=== PATIENT | female | born 1940 | race Caucasian/White ===

== ENCOUNTER → 2017-03-13 12:32 | Outpatient (CLI) | payer MEDICARE, OTHER ==
[2017-03-13 14:43] LABS: CALC OSMOLALITY 279 mosm/kg (275-300); CARBON DIOXIDE 22.9 mmol/L (21.0-32.0); CHLORIDE - SERUM 100 mmol/L (98-107); CREATININE - SERUM 0.7 mg/dL (0.6-1.3); GLUCOSE 117 mg/dL (74-106); POTASSIUM - SERUM 4.5 mmol/L (3.5-5.1); SODIUM 138 mmol/L (136-145); UREA NITROGEN 22 mg/dL (7-18); eGFR NON AFRICAN AMERICAN 86 mL/min (90-120)
[2017-03-13 14:47] LABS: APPEARANCE CLOUDY (CLEAR); BILIRUBIN NEGATIVE (NEGATIVE); COLOR YELLOW (YELLOW); GLUCOSE NEGATIVE (NEGATIVE); KETONE NEGATIVE (NEGATIVE); NITRITE POSITIVE (NEGATIVE); PROTEIN TRACE mg/dL (NEGATIVE); UROBILINOGEN NORMAL (NORMAL)
[2017-03-13 14:49] LABS: BACTERIA MODERATE /hpf (NONE SEEN)
[2017-03-13 14:50] LABS: TRIPLE PHOSPHATE CRYSTALS RARE /hpf (NONE SEEN)
[2017-03-17 14:13] LABS: EHRLICHIA CHAFF IGG Negative (Neg:<1:64); EHRLICHIA CHAFF IGM Negative (Neg:<1:20); HGE IGG TITER Negative (Neg:<1:64); HGE IGM TITER Negative (Neg:<1:20)
[2017-03-17 15:15] LABS: RMSF IGM 0.45 index (0.00-0.89)
[2017-03-21 10:20] LABS: F. TULARENSIS - IGG See below: (()); F. TULARENSIS - IGM Negative (())
== END | disposition home or self-care (01) ==
LOC: D.LABREF 12:32
PROVIDERS: Student in an Organized Health Care Education/Training Program
DX: A93.8 Other specified arthropod-borne viral fevers (principal); R60.0 Localized edema

== ENCOUNTER → 2018-07-14 09:14 | Outpatient (CLI) | payer MEDICARE, OTHER ==
--- NOTE | 2018-07-17 16:42 | ST ---
PATIENT:NICOLAS AWAD MEDICAL RECORD: [id number] SEX: F LOCATION:[facility] ORDER #: ADMISSION DATE: 07/14/18 AGE OF PATIENT: 78 REFERRING PHYSICIAN: INTERPRETING PHYSICIAN: CHAKA CLEMENT MD DATE OF SERVICE: 07/14/2018 PROCEDURE: Nuclear stress test. INDICATIONS: Angina, abnormal ECG, hypertension, hyperlipidemia. She was exercised on standard Lexiscan protocol with 27 mCi of sestamibi injected at peak stress, 9 mCi used previously for rest images. FINDINGS: Gated SPECT reveals preserved ejection fraction at 74% with good wall motion and thickening and brightening throughout all segments. SPECT imaging Cardiolite was used as myocardial fusion agent. There is homogeneous uptake throughout all segments at rest and stress with no evidence of inducible ischemia or previous infarction. OVERALL IMPRESSION: 1. This is a normal nuclear stress test with no evidence of inducible ischemia or previous infarction. 2. Gated SPECT reveals a preserved ejection fraction at 74%. In this patient with ongoing symptomatology, the current scan does not suggest the presence of hemodynamically significant coronary artery disease. Evaluate noncardiac etiology of chest pain. TRANSINT:[id number] Voice Confirmation ID: [id number] DOCUMENT ID: [id number] CHAKA CLEMENT MD at 1642 CC: DWAYNE CHERRY [id number] DICTATION DATE: 07/15/18 1537 PASTER HAT LINING: 07/16/18 0418 DEP CLI 07/14/18 [id number] [place] [address]
== END | disposition home or self-care (01) ==
LOC: D.HCCARDIO 09:14
PROVIDERS: ATTEND Internal Medicine Interventional Cardiology
DX: R07.9 Chest pain, unspecified (principal)

== ENCOUNTER 2018-12-11 12:44 | Inpatient (IN) | payer MEDICARE, OTHER ==
[~2018-12-11] VITALS: Ht 149.9 cm; Wt 67.6 kg
--- NOTE | ~2018-12-11 | HEMODYNAMI ---
PATIENT:NICOLAS AWAD MEDICAL RECORD: [id number] : 36 LOCATION:[facility] ADMISSION DATE: 12/11/18 Generatedon:12/11/201814:45 Patient name: NICOLAS AWAD Patient #: [id number] SSN: [id number] : 1940 Date of study: 12/11/2018 Page: Of Hemodynamic Procedure Report Patient Data Patient Demographics Procedure consent was obtained First Name: NICOLAS Gender: Female Last Name: DELMI : 1940 Patient #: [id number] Age: 78 year(s) Race: Unknown SSN: [id number] Additional ID: [id number] Contact details [address]: [address] [place] [address] State: [place] City: [place] Zip code: [address] Past Medical History Allergies: No known allergies Admission Admission Data Admission Date: 12/11/2018 Admission Time: 12:44 Admit Source: Emergency department Height (in.): 59 BSA: 1.63 (m2) Height (cm.): 149.86 BMI: 30.36 (kg/m2) Weight (lbs.): 150.31 Weight (kg.): 68.18 Lab Results Lab Result Date: 12/11/2018 Lab Result Time: 0:00 Biochemistry Name Units Result Min Max BUN mg/dl 20 --(----)*- 7 18 Creatinine mg/dl 0.8 --(-*--)-- 0.6 1.3 eGFR ml/min 73.70085 *-(----)-- 90 120 NONAFRICAN CBC Name Units Result Min Max Hematocrit % 40 -*(----)-- 42 54 Hemoglobin g/dl 13.4 -*(----)-- 13.5 17.5 Procedure Procedure Types Cath Procedure Diagnostic Procedure [facility] w/Coronaries Sedation Charges Moderate Sedation up to 15 minutes PCI Procedure PTCA PTCA Initial Procedure Description Procedure Date Procedure Date: 12/11/2018 Procedure Start Time: 14:13 Procedure End Time: 14:37 Procedure Staff Name Function Neftaly Dang MD Performing Physician Chio Jules RT Monitor Esa España RN Nurse Lashay Aragon RT Scrub Quinton Chang RT Territory Sales Executive Sumanth Loomis MD Performing Physician Procedure Data Cath Procedure Fluoroscopy Diagnostic fluoroscopy Total fluoroscopy Time: 3.2 time: 3.2 min min Diagnostic fluoroscopy Total fluoroscopy dose: 398 dose: 398 mGy mGy Contrast Material Contrast Material Type Amount (ml) Isovue 370 102 Entry Location Entry Primary Successful Side Size Upsize Upsize Entry Closure Succes sful Closure Location (Fr) 1 (Fr) 2 (Fr) Remarks Device Remarks Femoral Right 6 Fr Exoseal artery Short Estimated blood loss: 10 ml Diagnostic catheters Device Type Used For End Catheter Placement MULTIPACK JL 4.0 5Fr Procedure catheter MULTIPACK 3DRC 5Fr Procedure catheter MULTIPACK Pigtail 5 Fr Procedure catheter Procedure Complications No complications Procedure Medications Medication Administration Route Dosage Oxygen etCO2 Nasal cannula 2 l/min Lidocaine 2% added to field 20 Heparin Flush Bag added to field 2 bags (1000units/500ml NS) 0.9% NaCl I.V. 100 ml/hr Versed I.V. 1 mg Fentanyl I.V. 50 mcg Heparin Bolus I.V. 3000 units Lopressor I.V. 5 mg Integrilin (Bolus I.V. 6.2 ml 2mg/ml) Hemodynamics Rest BSA: 1.63 (m2) HGB: 13.4 (g/dl) O2 Consumption: Estimated: 147.82 (ml/min) O2 Co nsumption indexed: Estimated:90.69 (ml/min/m) Heart Rate: 72 (bpm) Pressure Samples Time Site Value (mmHg) Purpose Heart Use Rate(bpm) 14:18 LV 174/31,33 Snapshot 81 Gradients Valve Time Site Site Mean SEP/DFP Peak To Heart Use 1 2 (mmHg) (sec/min) Peak Rate (mmHg) (bpm) Aortic 14:19 LV AO 78 Snapshots Pre Cath Intra NCS Post Cath Vital Signs Time Heart Resp SPO2 etCO2 NIBP (mmHg) Rhythm Pain Sedation Rate (ipm) (%) (mmHg) Status Level (bpm) 14:10:05 70 19 99 26.3 170/77(124) NSR 0 (11) 10(A) , No pain 14:14:34 74 17 93 11.3 149/63(127) NSR 0 (11) 9(A) , No pain 14:18:56 77 15 95 8.2 157/72(124) NSR 0 (11) 9(A) , No pain 14:23:20 82 11 98 7.5 160/75(108) NSR 0 (11) 9(A) , No pain 14:27:40 67 18 95 8.2 151/80(133) NSR 0 (11) 9(A) , No pain 14:33:04 64 20 99 9.8 174/88(140) NSR 0 (11) 10(A) , No pain Medications Time Medication Route Dose Verified Delivered Reason Notes Effectiveness by by 14:09:09 Oxygen etCO2 2 Neftaly Buffie used for Nasal l/min Alton España RN procedure cannula 14:09:15 Lidocaine 2% added 20ml Neftaly Neftaly for local to vial Alton Dang MD anesthetic field 14:09:22 Heparin Flush added 2 Neftaly Neftaly used for Bag to bags Alton Dang MD procedure (1000units/500ml field NS) 14:09:30 0.9% NaCl I.V. 100 Neftaly Buffie Per physician ml/hr Alton España RN 14:09:42 Versed I.V. 1 mg Neftaly Buffie for sedation Alton España RN 14:09:48 Fentanyl I.V. 50 Neftaly Buffie for sedation mcg Alton España RN 14:15:52 Heparin Bolus I.V. 3000 Neftaly Buffie for verif ied units Alton España RN anticoagulation with dr le 14:25:11 Lopressor I.V. 5 mg Neftaly Buffie Per physician Alton España RN 14:27:27 Integrilin I.V. 6.2 Neftaly Buffie for (Bolus 2mg/ml) ml Alton España RN antiplatelet therapy Procedure Log Time Note 13:30:43 Esa España RN sent for patient. Start room use. 13:46:56 Time tracking: Regular hours (M-F 7:00 - 5:00) 13:47:01 Plan of Care:Hemodynamics will remain stable., Cardiac rhythm will remain stable., Comfort level will be maintained., Respiratory function will remain adequate., Patient/ family verbilizes understanding of procedure., Procedure tolerated without complication., Recovers from procedure without complications.. 13:48:30 Informed consent obtained and on chart 13:48:38 Admit Source: Emergency department 13:48:42 ACC Patient presents with Non-STEMI CCS Anginal Class 4--Inability to carry out any physical activity w/o angina. Angina may occur at rest. 13:50:23 Patient Height : 59 inches 13:50:29 Patient Weight : 150.31 lbs 13:57:20 Patient received from ED to CCL 2 Alert and oriented. Tansferred to table in Supine position. 13:57:23 Warm blankets applied, and mike hugger turned on for patient comfort. 13:57:23 Correct patient and procedure confirmed by team. 13:57:25 ECG and BP/O2 sat monitors applied to patient. 13:57:26 Full Disclosure recording started 13:57:31 H&P Date Dictated: 12/11/2018 ER History on chart.. 13:57:32 Pre-procedure instructions explained to patient. 13:57:32 Pre-op teaching completed and patient verbalized understanding. 13:57:35 Family in patients room. 13:57:36 Patient NPO since Midnight. 13:57:45 Patient allergic to No known allergies 13:58:08 Is patient on blood thinner?Yes preloaded on plavix 13:58:09 Patient diabetic? Yes. 13:58:32 If diabetic: On Metformin? No 13:59:02 Patient not . Patient is over age 55. 13:59:05 Previous problem with sedation/anesthesia? No ? 13:59:06 Snore? Yes 13:59:07 Sleep apnea? No 13:59:08 Deviated septum? No 13:59:09 Opens mouth fully? Yes 13:59:10 Sticks out tongue? Yes 13:59:12 Airway obstruction? No ? 13:59:42 Dentures? Yes IN TIGHT 13:59:49 Pre procedure: right dorsailis pedis pulse 1+ Palpable, but thready & weak; easily obliterated 14:00:27 IV patent on arrival in left wrist with 0.9% NaCl at KVO. 14:00:56 Lab Result : BUN 20 mg/dl 14:00:56 Lab Result : Creatinine 0.8 mg/dl 14:00:56 Lab Result : eGFR NONAFRICAN 73.45168 ml/min 14:00:56 Lab Result : Hemoglobin 13.4 g/dl 14:00:56 Lab Result : Hematocrit 40 % 14:00:59 Lab results completed and on chart. 14:01:03 Right groin area was prepped with chlora-prep and draped in sterile fashion 14:01:03 Alarms reviewed by R. N. 14:01:04 Sharps counted by scrub and verified by R.N. 14:02:22 Use device set Femoral Dx 14:02:23 ACIST Syringe (84674) opened to sterile field. 14:02:23 Bag Decanter (2002S) opened to sterile field. 14:02:24 ACIST Hand Control (40364) opened to sterile field. 14:02:25 ACIST Manifold (40863) opened to sterile field. 14:02:25 Tegaderm 4 x 4 (1626W) opened to sterile field. 14:02:26 Medline Cath Pack ([id number]) opened to sterile field. 14:02:27 DIAGNOSTIC Multipack 5Fr catheter set (MS4461) opened to sterile field. 14:02:32 EMERALD Guide Wire (994-630) opened to sterile field. 14:08:52 Vital chart was started 14:09:09 Oxygen 2 l/min etCO2 Nasal cannula was administered by Esa España RN; used for procedure; Verbal order read back and verified. 14:09:15 Lidocaine 2% 20ml vial added to field was administered by Neftaly Dang MD; for local anesthetic; Verbal order read back and verified. 14:09:22 Heparin Flush Bag (1000units/500ml NS) 2 bags added to field was administered by Neftaly Dang MD; used for procedure; Verbal order read back and verified. 14:09:25 Physician arrived 14:09:30 0.9% NaCl 100 ml/hr I.V. was administered by Esa España RN; Per physician; Verbal order read back and verified. 14:09:31 --------ALL STOP TIME OUT------ 14:09:34 Final Timeout: patient, procedure, and site verified with staff and physician. All members of the team are in agreement. 14:09:37 Right groin site verified by team. 14:09:42 Versed 1 mg I.V. was administered by Esa España RN; for sedation; Verbal order read back and verified. 14::42 Fire Safety Assessment: A--An alcohol-based skin anteseptic being used preoperatively., C--Open oxygen or nitrous oxide is being used., D--An ESU, laser, or fiber-optic light is being used. 14::48 Fentanyl 50 mcg I.V. was administered by Esa España RN; for sedation; Verbal order read back and verified. 14::48 Physical assessment completed. ASA score P 2 - A patient with mild systemic disease as per Neftaly Dang MD. 14:10:01 2) 60-89 Mildly reduced kidney function, and other findings (as for stage 1) point to kidney disease. 14:13:12 Maximum allowable contrast dose (3.7 X eGFR X 0.75)202 ml. 14:13:17 Sedation plan: IV Moderate Sedation Medication:Versed, Fentanyl 14:13:30 SHEATH 6FR Eden (JCC776) opened to sterile field. 14:13:36 Procedure started. 14:13:44 Local anesthetic to right femoral artery with Lidocaine 2% by Neftaly Dang MD.INITIAL ACCESS ONLY 14:13:52 A 6 Fr Short sheath was inserted into the Right Femoral artery 14:13:56 j wire advanced. 14:14:22 A MULTIPACK JL 4.0 5Fr catheter was advanced over the wire and used for Procedure. 14:14:52 Baseline sample Acquired. 14:14:55 Baseline sample Acquired. 14:15:06 Rhythm: sinus rhythm , w/ ST elevation 14:15:17 LCA angiography performed. 14:15:52 Heparin Bolus 3000 units I.V. was administered by Esa España RN; for anticoagulation; verified with dr le Verbal order read back and verified. 14:18:09 Catheter removed. 14:18:21 A MULTIPACK 3DRC 5Fr catheter was advanced over the wire and used for Procedure. 14:18:25 RCA angiography performed. 14:18:30 Catheter removed. 14:18:37 A MULTIPACK Pigtail 5 Fr catheter was advanced over the wire and used for Procedure. 14:19:02 EF : 55 % 14:19:03 LV hemodynamics recorded. 14:19:08 Catheter removed. 14:19:20 GUIDE 6FR XBLAD 3.5 catheter ([id number]) opened to sterile field. 14:20:44 INFLATOR Merit BasixCompak (AU3604) opened to sterile field. 14:20:45 WHISPER 300cm guide wire ([id number]) opened to sterile field. 14:22:18 Pre PCI Site: [place] mLAD has 100% stenosis. 14::25 6 Fr XBLAD3.5 guide catheter was inserted over the wire 14:: WHISPER wire advanced. 14::37 Wire advanced across lesion. 14:25:11 Lopressor 5 mg I.V. was administered by Esa España RN; Per physician; Verbal order read back and verified. 14::37 Inflate balloon Inflation number: 1 A Mozec Rx 2.5 x 14 balloon was prepped and advanced across the Mid LAD 100, then inflated to 8 WES for 0:19 (min:sec) . 14::22 Inflation number: 2 The Mozec Rx 2.5 x 14 balloon was reinflated across the Mid LAD , to 8 WES for 0:17 (min:sec) . 14:27:21 Inflation number: 3 The Mozec Rx 2.5 x 14 balloon was reinflated across the Mid LAD , to 6 WES for 0:13 (min:sec) . 14:27:27 Integrilin (Bolus 2mg/ml) 6.2 ml I.V. was administered by Esa España RN; for antiplatelet therapy; Verbal order read back and verified. 14:27:36 Inflation number: 4 The Mozec Rx 2.5 x 14 balloon was reinflated across the Mid LAD , to 6 WES for 0:08 (min:sec) . 14:30:54 ACT drawn and resulted at 275 seconds. (normal therapeutic range 180-240 seconds). 14:30:57 Wire removed. 14:30:58 Guide catheter removed. 14:32:21 Sheath removed intact; hemostasis achieved with Exoseal to the Right Femoral artery. 14:32:30 EXOSEAL 6Fr (EX600) opened to sterile field. 14:32:59 Procedure ended.(Physican Out) 14:33:09 Fluoroscopy time 03.20 minutes. 14:33:14 Flurop Dose total: 398 14:33:14 Fluoroscopy dose: 398 mGy 14:33:18 Dose Area Product 43530 mGy/cm. 14:33:24 Contrast amount:Isovue 370 102ml. 14:33:26 Maximum allowable dose exceeded? No. 14:33:27 Sharps counted by scrub and verified by R.N. 14:33:30 Insertion/operative site no bleeding no hematoma. 14:33:33 Post-op/insertion site Right Femoral artery dressed using a 4 x 4 and Tegaderm. 14:33:35 Post Procedure Pulses reassessed and unchanged 14:33:41 Post procedure: right dorsailis pedis pulse 2+ Normal; easily identifiable; not easily obliterated. 14:33:49 Post procedure rhythm: sinus rhythm , w/ ST elevation 14:33:52 Estimated blood loss: 10 ml 14:33:54 Post procedure instruction explained to patient.Patient verbalizes understanding. 14:34:58 Procedure type changed to Cath procedure, Diagnostic procedure, LHC, LHC w/Coronaries, Sedation Charges, Moderate Sedation up to 15 minutes, PCI procedure, PTCA, PTCA Initial 14:35:02 Procedure and supply charges have been captured, reviewed, submitted and are correct. 14:35:54 Procedure Complication : No complications 14:35:57 Vital chart was stopped 14:35:58 See physician's report for complete and final results. 14:36:02 Report given to Pre/Post Procedure Room. 14:36:31 Patient transfered to Pre/Post Procedure Room with Stretcher. 14:37:02 Procedure ended. 14:37:02 Full Disclosure recording stopped 14:37:24 End room use (Document Last) 14:38:48 End room use (Document Last) 14:43:37 FEMSTOP Gold (X63486) opened to sterile field. Intervention Summary Intervention Notes Time ActionType Lesion and Equipment Action# Pressure Duration Attributes Used 14:25:37 Inflate Mid LAD Mozec Rx 1 8 00:19 balloon 2.5 x 14 balloon 14:26:22 Reinflate Mid LAD Mozec Rx 2 8 00:17 balloon 2.5 x 14 balloon 14:27:21 Reinflate Mid LAD Mozec Rx 3 6 00:14 balloon 2.5 x 14 balloon 14:27:36 Reinflate Mid LAD Mozec Rx 4 6 00:08 balloon 2.5 x 14 balloon Device Usage Item Name Manufacture Quantity Catalog Hospital Part Current Minimal L ot# / Number Charge Number Stock Stock Serial# Code ACIST Acist 1 72715 671106 001396 515083 20 Syringe Medical (44559) Systems Inc Bag Microtek 1 850170 00132 885842 5 Decanter Medical Inc. () ACIST Hand Acist 1 89449 269652 121373 347165 5 Control Medical (95858) Systems Inc ACIST Acist 1 96800 560827 518019 763524 5 Manifold Medical (08610) Systems Inc Tegaderm 4 3M 1 1626W 863170 726137 440097 5 x 4 (1626W) Medline Medline 1 [id number] 225121 69098 913126 5 Cath Pack ([id number]) DIAGNOSTIC Cardinal 1 WJ9966 564743 77606 070555 30 Multipack Health 5Fr catheter set (TI5626) EMERALD Cardinal 1 502-455 847300 461768 556136 5 Guide Wire Health (502455) SHEATH 6FR Terumo 1 PLL453 062670 340533 563138 40 Eden (AWT587) MULTIPACK Cardinal 1 625912 5 JL 4.0 5Fr Health catheter MULTIPACK Cardinal 1 879577 5 3DRC 5Fr Health catheter MULTIPACK Cardinal 1 224149 5 Pigtail 5 Health Fr catheter GUIDE 6FR Cardinal 1 [id number] 052885 574848 536361 10 XBLAD 3.5 Health catheter (92762325) INFLATOR Merit 1 KN9839 887227 708319 437348 [address] [facility] BasixCompak (MA2164) WHISPER Anderson 1 [id number] 787073 724710 839187 5 300cm guide Vascular wire (4943277NQ) Mozec Rx Cardinal 1 [id number] 317935 87614 942167 5 U MOE02 2.5 x 14 Health balloon EXOSEAL 6Fr Cardinal 1 EX600 556134 282958 084588 10 (EX600) Health FEMSTOP St Som 1 U79608 590685 179481 473495 5 Gold (D45772) Signature Audit [place] Stage Time Signature Unsigned Intra-Procedure 12/11/2018 Chio Jules 2:38:48 PM RT(R) Intra-Procedure 12/11/2018 Esa España RN 2:39:31 PM Intra-Procedure 12/11/2018 Sumanth Gifford 2:45:11 PM Dami [facility] [address] [address]
--- NOTE | 2018-12-11 12:44 | NUR ---
EKG COMPLETED @ 123, ACUTE CHANGES NOTED, DR MA NOTIFIED
[2018-12-11 13:24] LABS: BASOPHILS 0.2 % (0-2); EOSINOPHILS 3.8 % (0-7); HEMOGLOBIN 13.4 g/dL (12-16); IMMATURE GRANULOCYTES 0.1 % (0-5); LYMPHOCYTES 34.6 % (15-50); MCH 31.1 pg (26.0-34.0); MCHC 33.5 g/dL (31.0-37.0); MCV 92.8 fL (80.0-100.0); MONOCYTES 6.3 % (2-11); PLATELET COUNT 185 10x3/uL (130-400); RBC 4.31 10x6/uL (4.00-5.40); RDW 13.1 % (11.5-14.5); WBC 8.6 10x3/uL (4.8-10.8)
[2018-12-11 13:29] LABS: ALBUMIN 3.6 g/dL (3.4-5.0); ALKALINE PHOSPHATASE 94 U/L (46-116); ALT (SGPT) 33 U/L (10-68); BILIRUBIN - TOTAL 0.37 mg/dL (0.2-1.3); CALC OSMOLALITY 284 mosm/kg (275-300); CALCIUM 9.3 mg/dL (8.5-10.1); CARBON DIOXIDE 29.5 mmol/L (21.0-32.0); CHLORIDE - SERUM 105 mmol/L (98-107); CREATININE - SERUM 0.8 mg/dL (0.6-1.3); GLUCOSE 110 mg/dL (74-106); POTASSIUM - SERUM 4.1 mmol/L (3.5-5.1); PROTEIN - SERUM 7.5 g/dL (6.4-8.2); SODIUM 141 mmol/L (136-145); UREA NITROGEN 20 mg/dL (7-18); eGFR NON AFRICAN AMERICAN 73 mL/min (90-120)
[2018-12-11 13:30] VITALS: BP 172/89
[2018-12-11 13:34] LABS: INR 0.99 (0.85-1.17); PROTIME 12.6 SECONDS (11.6-15.0)
[2018-12-11 13:45] LABS: CKMB 28.2 U/L (0.0-3.6); CREATINE KINASE 275 UL (21-215); MAGNESIUM - SERUM 1.9 mg/dL (1.8-2.4)
--- NOTE | 2018-12-11 13:50 | NUR ---
TO INFORMATICS NURSE SPECIALIST, CONDITION STABLE
[2018-12-11 13:54] LABS: TROPONIN-I 3.375 ng/mL (0.000-0.060)
--- NOTE | 2018-12-11 13:55 | NUR ---
CRITICAL LABTROPONIN 3.375RECEIVED FROM SINAN
--- NOTE | 2018-12-11 14:55 | NUR ---
PATIENT ARRIVED TO ROOM 3, PLACED ON CM. VSS. RIGHT GROIN 6F EXOSEAL WITH FEMOSTOP IN PLACE. WILL CONTINUE TO MONITOR.
--- NOTE | 2018-12-11 15:10 | NUR ---
PATIENT RESTING, FAMILY PRESENT AT BEDSIDE UPDATED BY OLIVIA PREVIOUSLY IN WAITING ROOM. VSS ON 2L NC. RIGHT GROIN SHOWS NO S/S OF BLEEDING OR HEMATOMA. NO C/O PAIN, NUMBNESS, OR TINGLING. NO N/V.
--- NOTE | 2018-12-11 15:35 | NUR ---
REPORT CALLED TO MINDI SAHA RN. RIGHT GROIN EXOSEAL AND FEMOSTOP IN PLACE, NO S/S OF BLEEDING OR HEMATOMA. PATIENT AWAKE, ANSWERS QUESTIONS APPROPRIATELY. VSS ON 2L NC. NO C/O PAIN, NUMBNESS, OR TINGLING. NO N/V. PATIENT TAKEN OFF MONITOR TO TRANSPORT TO 2115. ALL BELONGINGS WITH PATIENT.
--- NOTE | 2018-12-11 15:50 | NUR ---
transfer from cardiac catheterization technician by stretcher. VS WNL. RIGHT GROIN STABLE WITH FEMSTOP ON. WILL CONT. PLAN OF CARE.
[2018-12-11] MEDS ORDERED: COZAAR50 MG PO (15:56)
[2018-12-11] MEDS ORDERED: MOBIC7.5 MG PO (15:57)
[2018-12-11] MEDS ORDERED: GLUCOTROL ER2.5 MG PO (15:58)
[2018-12-11 16:09] VITALS: BP 144/68; BMI 30.1
--- NOTE | 2018-12-11 17:00 | NUR ---
FEMSTOP REMOVED WITHOUT BLEEDING OR HEMATOMA NOTED. WILL MONITOR.
[2018-12-11 20:00] VITALS: BP 186/66
--- NOTE | 2018-12-11 20:03 | NUR ---
INITIAL ROUNDS AND ASSESSMENT COMPLETED. PT NOW OFF OF BEDREST. ASSISTED UP TO USE BATHROOM. RFA PIV WITH NS @ 100ML/HR INFUSING. O2 @ 2L/NC WITH NONLABORED RESPIRATIONS. RIGHT GROIN INCISION SITE C/D/I WITH NO BRUISING OR SWELLING NOTED. CALL LIGHT IN REACH. CPOC.
--- NOTE | 2018-12-11 22:25 | NUR ---
RESTING. FSBS 120. SR/76 PER TELEMETRY. CALL LIGHT IN REACH. CPOC.
[2018-12-12] VITALS: BP 180/75
[2018-12-12 04:00] VITALS: BP 121/49
[2018-12-12 09:50] VITALS: Ht 149.9 cm; Wt 67.6 kg
[2018-12-12 10:35] VITALS: BP 139/47
--- NOTE | 2018-12-12 10:37 | NUR ---
RECEIVED PT IN BED AAOX4 RESP UNLABORED SKIN W/D COLOR WNL DENIES ANY PAIN OR DISCOMFORT NAD NOTED
[2018-12-12] MEDS ORDERED: TOPROL XL25 MG PO (10:47)
[2018-12-12] MEDS ORDERED: BAYER CHEWABLE81 MG PO (10:48)
[2018-12-12] MEDS ORDERED: LIPITOR40 MG PO (10:48)
[2018-12-12] MEDS ORDERED: PLAVIX75 MG PO (10:48)
[2018-12-12 12:50] VITALS: BP 132/57
--- NOTE | 2018-12-12 13:05 | NUR ---
REVIEWED DISCHARGE INSTRUCTIONS WITH PT STATES UNDERSTANDING COPY GIVEN DCD SALINE LOCKS TO RT AND LFA WITH IV CATHETER INTACT SITES FREE OF REDNESS OR EDEMA PT DISCHARGED HOME IN STABLE CONDITION WITH PERSONAL BELONGINGS VIA W/C
--- NOTE | 2018-12-13 09:56 | DS ---
PATIENT:NICOLAS AWAD :36 MEDICAL RECORD: [id number] DISCHARGE SUMMARY ADMISSION DATE: 12/11/18 DISCHARGE DATE: 12/12/18 DIAGNOSES: 1. Acute myocardial infarction. 2. Hypertension. 3. Hyperlipidemia. BRIEF HISTORY AND HOSPITAL COURSE: An 78-year-old transferred from [place] with NSTEMI and findings of totally occluded distal LAD and underwent a PTCA and did well. Discharged home in good condition. MEDICATIONS: Include Toprol 25 every day, Lipitor 40 every day, Plavix 75 every day for a month. ACTIVITY: As tolerated. DIET: AHA diet. FOLLOWUP: Will be with me in 4-6 weeks. TRANSINT:[id number] Voice Confirmation ID: [id number] DOCUMENT ID: [id number] SUNNY JACKSON MD at 0956 CC: [id number] DICTATION DATE: 12/12/18927 CONCRETE SAW OPERATOR: 12/13/18 0509 DEP CLI 12/12/18 [address] [place] [address]
--- NOTE | 2018-12-17 10:14 | OP ---
PATIENT NAME: NICOLAS AWAD MEDICAL RECORD: [id number] :36 LOCATION:D.M2 D.2116 ADMISSION DATE:12/11/18 SURGEON: SUNNY JACKSON MD DATE OF OPERATION: 12/11/2018 PROCEDURE: Left heart catheterization, selective coronary angiography, right femoral artery approach. CATHETERS: A 5-[place] Citizen sheath, 5/4 left and right Yves, 5/4 pig. The procedure was tolerated. The patient returned to the torres, sheath removed. ExoSeal device was placed. FINDINGS: Left ventriculography in 30-degree OLSON view: Mild anterior hypokinesis. Overall, LV function preserved at 50% or better. CORONARY ANATOMY: LEFT MAIN: Left main is free of disease. LAD: Is a small vessel, not quite reaching the apex. It is totally occluded in its mid portion, no more than a 2 to 2.5 mm vessel. CIRCUMFLEX: Free of disease. RIGHT CORONARY ARTERY: Large dominant artery reaching the apex supplying PDA, free of disease. IMPRESSION: Small non-ST elevation myocardial infarction secondary to occlusion of LAD. PLAN: Intervention momentarily. DESCRIPTION OF PROCEDURE: After an XB LAD guide catheter placed in the LAD, a [place] XT wire was placed across the totally occluded LAD down this portion of the vessel. Balloon used was 2.5 x 14 mm [place] up to 12 atmospheres. This showed excellent resolution of a total occlusion. No residual. CHRISTIN flow improved from 0 to 3. Sheath closed with ExoSeal device. Plavix was loaded previously in [place]. TRANSINT:[id number] Voice Confirmation ID: [id number] DOCUMENT ID: [id number] SUNNY JACKSON MD at 1014 CC: [id number] DICTATION DATE: 12/11/18 1459 PORK CUTLET MAKER: 12/11/18 1654 DIS IN 12/12/18 [facility] [address] [id number]
== END 2018-12-12 13:05 | disposition home or self-care (01) | DRG 251 ==
LOC: D.ER 12:44 → D.CATH 12:44 → D.M2 12:49 → EDSTATUS 15:12 → D.CATH 15:14 → D.M2 15:14 → D.CATH 12-12 13:05 → EDSTATUS 12-16 11:36
PROVIDERS: Family Medicine; Internal Medicine Cardiovascular Disease; ADMIT Internal Medicine Interventional Cardiology; ATTEND Internal Medicine Interventional Cardiology
PROC: B2111ZZ Fluoroscopy of Multiple Coronary Arteries using Low Osmolar Contrast (ICD-10-PCS; 2018-12-11)
PROC: B2151ZZ Fluoroscopy of Left Heart using Low Osmolar Contrast (ICD-10-PCS; 2018-12-11)
PROC: 02703ZZ Dilation of Coronary Artery, One Artery, Percutaneous Approach (ICD-10-PCS; principal; 2018-12-11 14:00)
PROC: 4A023N7 Measurement of Cardiac Sampling and Pressure, Left Heart, Percutaneous Approach (ICD-10-PCS; 2018-12-11 14:00)
DX: I21.4 Non-ST elevation (NSTEMI) myocardial infarction (principal); I10 Essential (primary) hypertension; E78.5 Hyperlipidemia, unspecified; I25.10 Atherosclerotic heart disease of native coronary artery without angina pectoris; E11.9 Type 2 diabetes mellitus without complications

== ENCOUNTER 2019-12-29 11:51 | Observation (INO) | payer MEDICARE, OTHER ==
[~2019-12-29] VITALS: Ht 149.9 cm; Wt 68.2 kg
--- NOTE | ~2019-12-29 | HEMODYNAMI ---
PATIENT:NICOLAS AWAD MEDICAL RECORD: [id number] : 36 [facility]# [id number] ADMISSION DATE: 12/29/19 Generatedon:12/30/20198:26 Patient name: NICOLAS AWAD Patient #: [id number] SSN: [id number] : 1940 Date of study: 12/30/2019 Page: Of Hemodynamic Procedure Report Patient Data Patient Demographics Procedure consent was obtained First Name: NICOLAS Gender: Female Last Name: DELMI : 1940 Patient #: [id number] Age: 79 year(s) Race: SSN: [id number] Additional ID: [id number] Contact details [address]: [address] [place] [address] State: [place] City: [place] Zip code: [address] Past Medical History Allergies: No known allergies Admission Admission Data Admission Date: 12/29/2019 Admission Time: 14:34 Arrival Date: 12/29/2019 Arrival Time: 14:34 Admit Source: Emergency Insurance Payor: Medicare department [facility] #: [id number] Room #: D.Banner Height (in.): 58.66 BSA: 1.62 (m2) Height (cm.): 149 BMI: 30.63 (kg/m2) Weight (lbs.): 149.92 Weight (kg.): 68 Lab Results Lab Result Date: 12/30/2019 Lab Result Time: 0:00 Biochemistry Name Units Result Min Max BUN mg/dl 26 --(----)-* 7 18 Creatinine mg/dl 1 --(--*-)-- 0.6 1.3 eGFR ml/min 56 *-(----)-- 90 120 NONAFRICAN CBC Name Units Result Min Max Hemoglobin g/dl 13.2 -*(----)-- 13.5 17.5 Procedure Procedure Types Cath Procedure Diagnostic Procedure LHC LHC w/Coronaries FFR/IVUS FFR Initial Sedation Charges Moderate Sedation 40-54 minutes PCI Procedure Hemochron ACT Test Procedure Description Procedure Date Procedure Date: 12/30/2019 Procedure Start Time: 7:37 Procedure End Time: 8:21 Procedure Staff Name Function eNftaly Dang MD Performing Physician Lashay Aragon RT Monitor Ginger Carias RT Scrub Esa España RN Nurse Milad Verma RN Nurse Procedure Data Cath Procedure Fluoroscopy Diagnostic fluoroscopy Total fluoroscopy Time: 6.3 time: 6.3 min min Diagnostic fluoroscopy Total fluoroscopy dose: 865 dose: 865 mGy mGy Contrast Material Contrast Material Type Amount (ml) Isovue 370 101 Entry Location Entry Primary Successful Side Size Upsize Upsize Entry Closure [place]den ccessful Closure Location (Fr) 1 (Fr) 2 (Fr) Remarks Device Remarks Femoral Right 5 Fr Mechanical vein Compression Femoral Right 5 Fr 6 Fr Exoseal artery Short Estimated blood loss: 10 ml Diagnostic catheters Device Type Used For End Catheter Placement MULTIPACK JL 4.0 5Fr Procedure catheter MULTIPACK 3DRC 5Fr Procedure catheter MULTIPACK Pigtail 5 Fr Procedure catheter Procedure Complications No complications Procedure Medications Medication Administration Route Dosage Oxygen etCO2 Nasal cannula 2 l/min Heparin Flush Bag added to field 2 bags (1000units/500ml NS) 0.9% NaCl I.V. 100 ml/hr Lidocaine 2% added to field 20 Fentanyl I.V. 50 mcg Versed I.V. 1 mg Fentanyl I.V. 50 mcg Versed I.V. 1 mg Heparin Bolus I.V. 3000 units Hemodynamics Rest BSA: 1.62 (m2) HGB: 13.2 (g/dl) O2 Consumption: Estimated: 161.44 (ml/min) O2 Co nsumption indexed: Estimated:99.65 (ml/min/m) Heart Rate: 96 (bpm) Pressure Samples Time Site Value (mmHg) Purpose Heart Use Rate(bpm) 7:52 LV 129/-15,1 Snapshot 85 Gradients Valve Time Site Site Mean SEP/DFP Peak To Heart Use 1 2 (mmHg) (sec/min) Peak Rate (mmHg) (bpm) Aortic 7:53 LV AO 72 Snapshots Pre Cath Intra NCS Post Cath Vital Signs Time Heart Resp SPO2 etCO2 NIBP (mmHg) Rhythm Pain Sedation Rate (ipm) (%) (mmHg) Status Level (bpm) 7:29:01 82 18 98 0 187/82(131) NSR 0 (11) 10(A) , No pain 7:33:25 82 17 100 31.5 172/73(131) NSR 0 (11) 10(A) , No pain 7:37:49 77 12 98 34.5 117/65(91) NSR 0 (11) 10(A) , No pain 7:41:55 76 11 97 7.5 77/52(72) NSR 0 (11) 10(A) , No pain 7:45:57 76 11 98 0 91/51(72) NSR 0 (11) 10(A) , No pain 7:50:02 77 11 98 0 107/55(81) NSR 0 (11) 10(A) , No pain 7:54:14 80 11 98 0 110/57(76) NSR 0 (11) 10(A) , No pain 7:58:28 83 13 99 20.3 121/56(84) NSR 0 (11) 10(A) , No pain 8:02:36 78 11 98 20.2 107/59(76) NSR 0 (11) 10(A) , No pain 8:06:46 82 12 98 24.7 105/57(89) NSR 0 (11) 10(A) , No pain 8:10:56 80 12 98 18.7 116/58(99) NSR 0 (11) 10(A) , No pain 8:15:08 87 14 99 36.1 124/67(102) NSR 0 (11) 10(A) , No pain 8:19:18 86 13 99 33.1 110/65(91) NSR 0 (11) 10(A) , No pain Medications Time Medication Route Dose Verified Delivered Reason Notes Effectiveness by by 7:29:18 Oxygen etCO2 2 Neftaly Milad Per physician Nasal l/min Alton Verma RN cannula 7:29:26 Heparin Flush added 2 Neftaly Milad used for Bag to bags Alton Verma manual equipment mechanic (1000units/500ml field NS) 7:29:35 0.9% NaCl I.V. 100 Neftaly Milad Per physician ml/hr Alton Verma RN 7:29:42 Lidocaine 2% added 20ml Neftaly Milad for local to vial Alton Verma RN anesthetic field 7:33:41 Fentanyl I.V. 50 Neftaly Milad for sedation mcg Alton Verma RN 7:33:47 Versed I.V. 1 mg Neftaly Milad for sedation Alton Verma RN 7:38:18 Fentanyl I.V. 50 Neftaly Milad for sedation mcg Alton Verma RN 7:38:21 Versed I.V. 1 mg Neftaly Milad for sedation Alton Verma RN 7:59:22 Heparin Bolus I.V. 3000 Neftaly Milad for units Alton Verma RN anticoagulation Procedure Log Time Note 6:46:58 Diagnostic Cath Status : Urgent 6:47:23 Informed consent obtained and on chart 6:48:53 Arrival Date: 12/29/2019 2:34:00 PM 6:49:14 Admit Source: Emergency department 6:49:17 Insurance Payor : Medicare 6:49:24 Patient Height : 58.66 inches 6:49:28 Patient Weight : 149.92 lbs 6:51:26 Lab Result : BUN 26 mg/dl 6:51:26 Lab Result : eGFR NONAFRICAN 56 ml/min 6:51:26 Lab Result : Hemoglobin 13.2 g/dl 6:51:26 Lab Result : Creatinine 1 mg/dl 6:51:32 Procedure Status Urgent Heart Cath (IP). 6:51:37 Time tracking: Regular hours (M-F 7:00 - 5:00) 6:51:42 Plan of Care:Hemodynamics will remain stable., Cardiac rhythm will remain stable., Comfort level will be maintained., Respiratory function will remain adequate., Patient/ family verbilizes understanding of procedure., Procedure tolerated without complication., Recovers from procedure without complications.. 6:55:36 Ginger Carias RT(R) sent for patient. Start room use. 7:20:09 ACC Patient presents with Unstable Angina CCS Anginal Class 2--Slight limitation of ordinary activity. 7:20:16 Patient received from ED to CCL 2 Alert and oriented. Tansferred to table in Supine position. 7:20:17 Warm blankets applied, and mike hugger turned on for patient comfort. 7:20:17 Correct patient and procedure confirmed by team. 7:20:17 ECG and BP/O2 sat monitors applied to patient. 7:27:41 Vital chart was started 7:29:18 Oxygen 2 l/min etCO2 Nasal cannula was administered by Milad Verma RN; Per physician; Verbal order read back and verified. 7:29:26 Heparin Flush Bag (1000units/500ml NS) 2 bags added to field was administered by Milad Verma RN; used for procedure; Verbal order read back and verified. 7:29:35 0.9% NaCl 100 ml/hr I.V. was administered by Milad Verma RN; Per physician; Verbal order read back and verified. 7:29:42 Lidocaine 2% 20ml vial added to field was administered by Milad Verma RN; for local anesthetic; Verbal order read back and verified. 7:30:08 Baseline sample Acquired. 7:30:09 Full Disclosure recording started 7:30:21 H&P Date Dictated: 12/29/2019 Within 30 days and on chart.. 7:30:22 Pre-procedure instructions explained to patient. 7:30:22 Pre-op teaching completed and patient verbalized understanding. 7:30:24 Family unavailable. 7:30:26 Patient NPO since Midnight. 7:30:33 Patient allergic to No known allergies 7:30:38 Is the patient allergic to Iodine/contrast media? No. 7:30:39 Was the patient premedicated? No 7:30:41 Is patient on blood thinner?Yes 7:30:44 Patient diabetic? No. 7:30:46 ----Pre-sedation anethsthesia assessment.---- 7:30:51 Previous problem with sedation/anesthesia? No ? 7:30:56 ACC The patient was administered the following blood thiners within the last 24 hours: ACCLovenox 7:31:03 Snore? Yes 7:31:05 Sleep apnea? No 7:31:06 Deviated septum? No 7:31:08 Opens mouth fully? Yes 7:31:09 Sticks out tongue? Yes 7:31:12 Airway obstruction? No ? 7:31:16 Dentures? Yes IN TIGHT 7:31:20 Pre procedure: right dorsailis pedis pulse 2+ Normal; easily identifiable; not easily obliterated 7:31:23 Patient pain scale 0/10 ?. 7:31:30 IV patent on arrival in left antecubital with 0.9% NaCl at KVO. 7:31:38 Baseline sample Acquired. 7:31:41 Rhythm: sinus rhythm 7:31:47 Lab results completed and on chart. 7:31:51 Stress Test: no; N/A \ 7:31:55 Right groin area was prepped with chlora-prep and draped in sterile fashion 7:31:56 Alarms reviewed by R. N. 7:31:57 Sharps counted by scrub and verified by R.N. 7:31:59 Use device set Femoral Dx 7:32:00 ACIST Syringe (26797) opened to sterile field. 7:32:01 Bag Decanter (2002S) opened to sterile field. 7:32:01 Medline Cath Pack ([id number]) opened to sterile field. 7:32:03 ACIST Hand Control (46282) opened to sterile field. 7:32:03 ACIST Manifold (52069) opened to sterile field. 7:32:04 DIAGNOSTIC Multipack 5Fr catheter set (QV3473) opened to sterile field. 7:32:05 SHEATH 5FR Swanton (NWR800) opened to sterile field. 7:32:06 EMERALD Guide Wire (262-391) opened to sterile field. 7:33:38 --------ALL STOP TIME OUT------ 7:33:39 Final Timeout: patient, procedure, and site verified with staff and physician. All members of the team are in agreement. 7:33:40 Right groin site verified by team. 7:33:41 Fentanyl 50 mcg I.V. was administered by Milad Verma RN; for sedation; Verbal order read back and verified. 7:33:43 Fire Safety Assessment: A--An alcohol-based skin anteseptic being used preoperatively., C--Open oxygen or nitrous oxide is being used., D--An ESU, laser, or fiber-optic light is being used. 7:33:47 Versed 1 mg I.V. was administered by Milad Verma RN; for sedation; Verbal order read back and verified. 7:33:47 Physical assessment completed. ASA score P 2 - A patient with mild systemic disease as per Neftaly Dang MD. 7:33:50 2) 60-89 Mildly reduced kidney function, and other findings (as for stage 1) point to kidney disease. 7:33:52 Maximum allowable contrast dose (3.7 X eGFR X 0.75)155 ml. 7:33:57 Sedation plan: IV Moderate Sedation Medication:Versed, Fentanyl 7:37:04 Procedure started. 7:37:07 Local anesthetic to right femoral artery with Lidocaine 2% by Neftaly Dang MD.INITIAL ACCESS ONLY 7:38:18 Fentanyl 50 mcg I.V. was administered by Milad Verma RN; for sedation; Verbal order read back and verified. 7:38:21 Versed 1 mg I.V. was administered by Milad Verma RN; for sedation; Verbal order read back and verified. 7:41:08 A 5 Fr sheath was inserted into the Right Femoral vein 7:41:55 SHEATH 5FR Swanton (AMM928) opened to sterile field. 7:42:05 A 5 Fr sheath was inserted into the Right Femoral artery 7:44:51 A MULTIPACK JL 4.0 5Fr catheter was advanced over the wire and used for Procedure. 7:45:05 LCA angiography performed. 7:45:07 Injector settings: Ml/sec: 3, Volume: 6, 7:49:29 Catheter exchanged over wire. 7:51:02 A MULTIPACK 3DRC 5Fr catheter was advanced over the wire and used for Procedure. 7:51:12 RCA angiography performed. 7:51:14 Injector settings: Ml/sec: 3, Volume: 6, 7:51:50 ACCDominant side:Right 7:51:54 Catheter exchanged over wire. 7:52:00 A MULTIPACK Pigtail 5 Fr catheter was advanced over the wire and used for Procedure. 7:52:40 LV gram done using OLSON 7:52:54 LV hemodynamics recorded. 7:53:08 EF : 55 % 7:54:39 Catheter exchanged over wire. 7:54:48 Use device set DANG PCI 7:54:51 INFLATOR Merit BasixCompak (OJ1568) opened to sterile field. 7:54:52 TUBING High Pressure Extension Tubing (Dang) ([id number]) opened to sterile field. 7:54:54 BMW 300cm Gautier 2 J wire ([id number]) opened to sterile field. 7:54:56 SHEATH 6FR Swanton (MSH613) opened to sterile field. 7:55:19 Sheath upsized to a 6 Fr Short. 7:57:10 GUIDE 6FR EBU 3.5 catheter ([id number]) opened to sterile field. 7:57:18 6 Fr EBU3.5 guide catheter was inserted over the wire 7:57:27 Pre PCI Site: [place] mLAD has 100% stenosis. 7:58:42 BMW 300 wire advanced. 7:59:22 Heparin Bolus 3000 units I.V. was administered by Milad Verma RN; for anticoagulation; Verbal order read back and verified. 8:05:26 UNABLE TO GET WIRE TO CROSS LESION. 8:05:33 Wire removed. 8:05:38 Guide catheter removed. 8:08:03 GUIDE 6FR JR 4.0 catheter (LZ0ER94) opened to sterile field. 8:08:08 Wayland Verrata Plus pressure wire (56676A) opened to sterile field. 8:12:02 FFR/IFR wire advanced. 8:12:50 Wire advanced across lesion. 8:13:43 RCA lesion measured at .97 with IFR 8:14:33 Wire removed. 8:14:33 Guide catheter removed. 8:14:40 EXOSEAL 6Fr (EX600) opened to sterile field. 8:14:58 Sheath removed intact; hemostasis achieved with Mechanical Compression to the Right Femoral vein. 8:15:04 Sheath removed intact; hemostasis achieved with Exoseal to the Right Femoral artery. 8:15:37 Fluoroscopy time 06.30 minutes. 8:15:44 Flurop Dose total: 865 8:15:44 Fluoroscopy dose: 865 mGy 8:15:48 Dose Area Product 32756 mGy/cm. 8:15:53 Maximum allowable dose exceeded? No. 8:15:54 Sharps counted by scrub and verified by R.N. 8:16:39 Procedure ended.(Physican Out) 8:18:27 Contrast amount:Isovue 370 101ml. 8:18:33 Post-op/insertion site Right Femoral artery dressed using a 4 x 4 and Tegaderm. 8:18:38 Post-op/insertion site Right Femoral vein dressed using a 4 x 4 and Tegaderm. 8:18:40 Post Procedure Pulses reassessed and unchanged 8:18:43 Post procedure: right dorsailis pedis pulse 2+ Normal; easily identifiable; not easily obliterated. 8:18:46 Post-procedure physical assessment completed. ASA score P 2 - A patient with mild systemic disease as per Neftaly Dang MD. 8:18:50 Post procedure rhythm: unchanged. 8:18:55 Estimated blood loss: 10 ml 8:18:57 Post procedure instruction explained to patient.Patient verbalizes understanding. 8:18:58 Patient needs reinforcement of post procedure teaching. 8:19:37 Procedure type changed to Cath procedure, Diagnostic procedure, LHC, LHC w/Coronaries, FFR/IVUS, FFR Initial, Sedation Charges, Moderate Sedation 40-54 minutes, PCI procedure, Hemochron ACT Test 8:20:33 Procedure and supply charges have been captured, reviewed, submitted and are correct. 8:20:36 Procedure Complication : No complications 8:20:40 [facility] Findings: MVD- PCI performed (see procedure note) 8:20:42 Operative report dictated upon procedure completion. 8:20:42 See physician's report for complete and final results. 8:21:04 Procedure ended. 8:21:04 Full Disclosure recording stopped 8:21:39 Vital chart was stopped 8:22:40 Report given to Pre/Post Procedure Room. 8:22:47 Patient transfered to Pre/Post Procedure Room with Stretcher. 8:22:50 End room use (Document Last) 8:23:03 End room use (Document Last) 8:23:33 End room use (Document Last) 8:25:16 ACT drawn and resulted at 219 seconds. (normal therapeutic range 180-240 seconds). Device Usage Item Name Manufacture Quantity Catalog Hospital Part Current Minima l Lot# / Number Charge Number Stock Stock Serial# Code ACIST Acist 1 54532 183769 144038 822646 20 Syringe Medical (94682) Systems Inc Bag Microtek 1 097696 89586 422894 5 Decanter Medical Inc. () Medline Medline 1 [id number] 953177 75093 898319 5 Cath Pack ([id number]) ACIST Hand Acist 1 43001 820084 758451 814995 5 Control Medical (52822) Systems Inc ACIST Acist 1 29643 219957 316151 100677 5 Manifold Medical (57624) Systems Inc DIAGNOSTIC Cardinal 1 HO8330 029881 34686 471148 30 Multipack Health 5Fr catheter set (MZ1789) SHEATH 5FR Terumo 2 YHQ614 993313 694453 935602 5 Swanton (MTQ491) EMERALD Cardinal 1 502-455 407056 408704 072582 5 Guide Wire Health (502455) MULTIPACK Cardinal 1 913063 5 JL 4.0 5Fr Health catheter MULTIPACK Cardinal 1 799217 5 3DRC 5Fr Health catheter MULTIPACK Cardinal 1 119997 5 Pigtail 5 Health Fr catheter INFLATOR Merit 1 JG6897 434156 950356 694901 15 Merit Medical BasixCompak (YT1418) TUBING High Merit 1 [id number] 337921 34117 188503 10 Pressure Medical Extension Tubing (Dang) (QN7254O) BMW 300cm Anderson 1 [id number] 649397 580683 391097 5 Gautier 2 Vascular J wire (1538574Z) SHEATH 6FR Terumo 1 GHR696 918491 865433 954919 40 Swanton (SIB177) GUIDE 6FR Medtronic 1 [id number] 915635 51786 819069 3 EBU 3.5 catheter (EP3GGQ19) Wayland Wayland 1 21168A 226141 522409023 000725 5 Verrata Plus pressure wire (40942G) GUIDE 6FR Medtronic 1 CY7DA74 032130 00870 853811 1 JR 4.0 catheter (FI5WA43) EXOSEAL 6Fr Cardinal 1 EX600 749895 607835 325829 10 (EX600) [facility] Signature Audit [place] Stage Time Signature Unsigned Intra-Procedure 12/30/2019 Lashay Aragon 8:23:03 AM RT(R) Intra-Procedure 12/30/2019 Milad Verma 8:23:33 AM RN Intra-Procedure 12/30/2019 Neftaly Dang MD 8:26:08 AM Signatures Performing Physician : Signature : Neftaly Dang MD Date : Time : Monitor : Lashay Young Signature : RT Date : Time : Nurse : Buffie España RN Signature : Date : Time : Nurse : Milad Verma RN Signature : Date : Time : [place] [address] [place] [address]
[~2019-12-29 11:51] MED LIST: BAYER CHEWABLE81 MG PO; COZAAR50 MG PO; GLUCOTROL ER2.5 MG PO; LIPITOR40 MG PO; MOBIC7.5 MG PO; PLAVIX75 MG PO; TOPROL XL25 MG PO
[2019-12-29] MEDS ORDERED: HYDROCHLOROTHIA25 MG PO (11:57)
[2019-12-29] MEDS ORDERED: NORVASC5 MG PO (11:57)
[2019-12-29] MEDS ORDERED: FEXOFENADINE HC60 MG PO (11:58)
[2019-12-29 12:33] LABS: BASOPHILS 0.5 % (0-2); EOSINOPHILS 3.8 % (0-7); HEMATOCRIT 39.9 % (36.0-48.0); HEMOGLOBIN 13.2 g/dL (12-16); IMMATURE GRANULOCYTES 0.3 % (0-5); LYMPHOCYTES 29.4 % (15-50); MCH 30.6 pg (26.0-34.0); MCHC 33.1 g/dL (31.0-37.0); MCV 92.6 fL (80.0-100.0); MEAN PLATELET VOLUME 9.3 fL (7.4-10.4); MONOCYTES 7.3 % (2-11); NEUTROPHILS 58.7 % (40-80); RBC 4.31 10x6/uL (4.00-5.40); RDW 13.4 % (11.5-14.5)
[2019-12-29 12:40] LABS: PLATELET COUNT 251 10x3/uL (130-400)
[2019-12-29 12:47] LABS: CALC OSMOLALITY 284 mosm/kg (275-300); CALCIUM 9.6 mg/dL (8.5-10.1); CARBON DIOXIDE 29.1 mmol/L (21.0-32.0); CHLORIDE - SERUM 102 mmol/L (98-107); GLUCOSE 173 mg/dL (74-106); POTASSIUM - SERUM 4.1 mmol/L (3.5-5.1); SODIUM 138 mmol/L (136-145); UREA NITROGEN 26 mg/dL (7-18); eGFR NON AFRICAN AMERICAN 56 mL/min (90-120)
[2019-12-29 12:58] LABS: BACTERIA FEW HPF (NONE SEEN); BILIRUBIN NEGATIVE (NEGATIVE); EPITHELIAL CELLS 0-5 /hpf (0-5); KETONE NEGATIVE (NEGATIVE); NITRITE NEGATIVE (NEGATIVE); UROBILINOGEN NORMAL mg/dL (< 2); WHITE CELLS - URINE OCC HPF (0-4)
[2019-12-29 13:13] LABS: ALBUMIN 3.9 g/dL (3.4-5.0); ALKALINE PHOSPHATASE 86 U/L (30-120); ALT (SGPT) 54 U/L (10-68); BILIRUBIN - TOTAL 0.24 mg/dL (0.2-1.3); CREATINE KINASE 236 UL (21-215); PRO BNP 147 pg/mL (0-450)
[2019-12-29 13:14] LABS: CKMB 10.6 U/L (0.0-3.6); TROPONIN-I 1.899 ng/mL (0.000-0.060)
[2019-12-29 14:06] VITALS: Ht 149.9 cm; Wt 68.2 kg
[2019-12-29 14:31] LABS: CHOL - HDL RATIO 5.4 ratio (2.3-4.1); LDL-HDL RATIO 3.3 ratio (1.5-3.5)
[2019-12-29 14:34] VITALS: BP 130/57
[2019-12-29 17:07] VITALS: BP 142/49
[2019-12-29 19:15] VITALS: BP 144/60
--- NOTE | 2019-12-29 19:20 | NUR ---
PT AMBULATED TO AND FROM BATHROOM WITH STEADY GAIT NOTED. GAVE HER DINNER TRAY AND UPDATED HER ON PLAN OF CARE, TO GO TO MATERIAL ASSISTANT TOMORROW. PT VOICED UNDERSTANDING. CALL LIGHT WITHIN REACH, DENIES CURRENT NEEDS. WILL CONTINUE TO MONITOR.
[2019-12-29 19:23] LABS: CKMB 15.8 U/L (0.0-3.6); CREATINE KINASE 243 UL (21-215)
[2019-12-29 19:25] LABS: TROPONIN-I 4.372 ng/mL (0.000-0.060)
[2019-12-29 20:30] VITALS: BP 123/53
[2019-12-29 21:31] VITALS: BP 129/50
[2019-12-29 22:31] VITALS: BP 137/45
--- NOTE | 2019-12-29 22:45 | NUR ---
PT AMBULATED TO AND FROM RESTROOM AT THIS TIME WITH SLOW STEADY GAIT. REPOSITIONED IN BED. CALL LIGHT WITHIN REACH, BED RAILS X2. WILL CONTINUE TO MONITOR.
--- NOTE | 2019-12-30 00:14 | NUR ---
PT RESTING IN SUPINE POSITION, ON FORCE VARIATION EQUIPMENT TENDER. AWAKE AND ALERT, DENIES NEEDS, DENIES CHEST PAIN. WILL CONTINUE TO MONITOR.
--- NOTE | 2019-12-30 02:00 | NUR ---
PT AMBULATED TO RESTROOM AT THIS TIME. VOICES NO OTHER NEEDS.
[2019-12-30 03:03] VITALS: BP 142/61
[2019-12-30 03:07] LABS: CKMB 10.1 U/L (0.0-3.6); CREATINE KINASE 230 UL (21-215)
[2019-12-30 03:08] LABS: TROPONIN-I 3.336 ng/mL (0.000-0.060)
[2019-12-30 04:24] VITALS: BP 120/49
--- NOTE | 2019-12-30 04:35 | NUR ---
EKG COMPLETED AT THIS TIME, PT DENIES CHEST PAIN.
[2019-12-30 05:28] VITALS: BP 174/67
--- NOTE | 2019-12-30 06:35 | NUR ---
CALL RECEIVED TO PREP PT FOR ASSOCIATE PROFESSOR OF RADIOLOGY. VERBAL ORDER TO GIVE BENADRYL PRE OP AND START KVO FLUIDS. PT UPDATED ON PLAN OF CARE. BELONGINGS IN PERSONAL BAG ON BED.
[2019-12-30 06:55] LABS: CALC OSMOLALITY 279 mosm/kg (275-300); CALCIUM 9.2 mg/dL (8.5-10.1); CARBON DIOXIDE 25.5 mmol/L (21.0-32.0); CHLORIDE - SERUM 102 mmol/L (98-107); CREATINE KINASE 205 UL (21-215); CREATININE - SERUM 0.9 mg/dL (0.6-1.3); GLUCOSE 133 mg/dL (74-106); POTASSIUM - SERUM 3.9 mmol/L (3.5-5.1); SODIUM 137 mmol/L (136-145); UREA NITROGEN 24 mg/dL (7-18); eGFR NON AFRICAN AMERICAN 64 mL/min (90-120)
--- NOTE | 2019-12-30 07:02 | NUR ---
BEDSIDE REPORT GIVEN TO JULIEN RENDON.
[2019-12-30 07:14] LABS: BASOPHILS 0.4 % (0-2); HEMATOCRIT 39.6 % (36.0-48.0); HEMOGLOBIN 12.9 g/dL (12-16); IMMATURE GRANULOCYTES 0.1 % (0-5); LYMPHOCYTES 29.9 % (15-50); MCH 30.4 pg (26.0-34.0); MCHC 32.6 g/dL (31.0-37.0); MCV 93.4 fL (80.0-100.0); MEAN PLATELET VOLUME 10.1 fL (7.4-10.4); MONOCYTES 9.1 % (2-11); NEUTROPHILS 55.5 % (40-80); PLATELET COUNT 290 10x3/uL (130-400); RBC 4.24 10x6/uL (4.00-5.40); RDW 13.6 % (11.5-14.5); WBC 8.5 10x3/uL (4.8-10.8)
[2019-12-30 07:17] LABS: TROPONIN-I 2.154 ng/mL (0.000-0.060)
--- NOTE | 2019-12-30 08:40 | NUR ---
PT ARRIVED BY STRETCHER. PLACED ON MONITORS. VSS AT THIS TIME. PT'S DAUGHTER CALLED AND I UPDATED HER ON PT'S STATUS. SHE VOICED UNDERSTANDING. CALL LIGHT WITHIN REACH.
--- NOTE | 2019-12-30 08:55 | NUR ---
PT RESTING COMFORTABLY. VSS. RIGHT GROIN DRESSING C/D/I. NO S/S OF HEMATOMA NOTED. CALL LIGHT WITHIN REACH.
--- NOTE | 2019-12-30 09:25 | NUR ---
RIGHT GROIN DRESSING C/D/I. NO S/S OF HEMATOMA NOTED. CALL LIGHT WITHIN REACH. VSS AT THIS TIME. NO NEEDS. DENIES NAUSEA/PAIN.
--- NOTE | 2019-12-30 09:55 | NUR ---
RIGHT GROIN DRESSING C/D/I. NO S/S OF HEMATOMA NOTED. CALL LIGHT WITHIN REACH. VSS AT THIS TIME. PT RESTING COMFORTABLY.
[2019-12-30] MEDS ORDERED: ISOSORBIDE MONO30 M1 PO (10:17)
--- NOTE | 2019-12-30 10:30 | NUR ---
HEAD OF BED INC TO 30 DEGREES. TOLERATED WELL. RIGHT GROIN DRESSING C/D/I. NO S/S OF HEMATOMA NOTED. SANA SHANKAR AT BEDSIDE. PT OK TO DISCHARGE FROM CARDIOLOGY STANDPOINT AND PCP. PT SET UP WITH SANDWICH TRAY AND DRINK. DENIES NAUSEA/PAIN AT THIS TIME.
--- NOTE | 2019-12-30 10:51 | NUR ---
0800 PATIENT TO BILLING AUDITOR
--- NOTE | 2019-12-30 11:47 | NUR ---
RIGHT GROIN DRESSING C/D/I. NO S/S OF HEMATOMA NOTED. PIV D/C'D WITH CATH TIP INTACT. TOLERATED WELL. DISCUSSED DISCHARGE INSTRUCTIONS WITH PT. SHE VOICED UNDERSTANDING. PT INSTRUCTED TO GET UP AND DRESSED AT THIS TIME. CALL LIGHT WITHIN REACH.
--- NOTE | 2019-12-30 11:50 | NUR ---
PT AMBULATED TO RESTROOM AND VOIDED WITHOUT DIFFICULTY. STEADY GAIT NOTED.
--- NOTE | 2019-12-30 12:20 | NUR ---
PT'S DAUGHTER IS HERE. DISCUSSED DISCHARGE INSTRUCTIONS WITH HER. SHE VOICED UNDERSTANDING. RIGHT GROIN DRESSING C/D/I. NO S/S OF HEMATOMA NOTED. PT TAKEN OUT TO VEHICLE BY WHEELCHAIR. NO S/S OF DISTRESS NOTED. ALL BELONGINGS AND PAPERWORK IN HAND.
== END 2019-12-30 12:20 | disposition home or self-care (01) ==
LOC: D.ER 11:51 → OBSVTIME 14:34 → D.EDHOLD 14:34 → D.CLR 14:34
PROVIDERS: Emergency Medicine; Family Medicine; Internal Medicine Cardiovascular Disease; ADMIT Emergency Medicine; ATTEND Emergency Medicine
DX: I21.4 Non-ST elevation (NSTEMI) myocardial infarction (principal); I10 Essential (primary) hypertension; E78.5 Hyperlipidemia, unspecified; Z79.84 Long term (current) use of oral hypoglycemic drugs; E11.65 Type 2 diabetes mellitus with hyperglycemia; I24.9 Acute ischemic heart disease, unspecified; I25.110 Atherosclerotic heart disease of native coronary artery with unstable angina pectoris